=== PATIENT | female | born 1995 | race Caucasian/White ===

== ENCOUNTER → 2025-02-09 17:17 | Outpatient (CLI) | payer OTHER, SELFPAY ==
[2025-02-09 18:04] LABS: COVID-19 CEPHEID 4-PLEX PCR Negative (Negative); Influenza A - CEPHEID Flu A NEGATIVE (NEGATIVE); Influenza B - CEPHEID Flu B NEGATIVE (NEGATIVE); Respiratory Syncytial Virus Negative (Negative)
== END ==
PROVIDERS: Visit Provider Registered Nurse
DX: R05.1 Acute cough (principal)
CPT/HCPCS: 87635; 87400 ×2; 87420; 0241U